=== PATIENT | female | born 2000 | race Hispanic/Latino ===

== ENCOUNTER 2022-05-31 07:47 | Day surgery (SDC) | payer BC ==
[2022-05-30 08:48] VITALS: BMI 34.3
[2022-05-31] MEDS ORDERED: Midazolam HCl 2 mg/2 ml Vial ONE (08:45)
[2022-05-31] MEDS ORDERED: Scopolamine 1.5 mg/72 hour Patch ONE (08:46)
[2022-05-31] MEDS ORDERED: Propofol 1,000 MG/100 ML VIAL IV ONE ×2 (09:04→09:39)
[2022-05-31 09:08] LABS: Hemoglobin 13.9 g/dL (12.0-16.0)
[2022-05-31] MEDS ORDERED: Ketamine 50 MG/ML (10ML VIAL) ONE (09:39)
[2022-05-31] MEDS ORDERED: fentaNYL PF 100 MCG/2 ML SYRINGE ONE (09:39)
[2022-05-31] MEDS ORDERED: PROPOFOL 200 MG/20 ML VIAL ONE (09:48)
[2022-05-31] MEDS ORDERED: Ondansetron PF 4 MG/2 ML Vial ONE (09:48)
[2022-05-31] MEDS ORDERED: Dexamethasone 20 MG/5 ML VIAL ONE (09:48)
[2022-05-31] MEDS ORDERED: Ferric Subsulfate (ASTRINGYN) 8 GM VIAL ONE (09:56)
[2022-05-31] MEDS ORDERED: Hydrocodone-Acetamin 15 ML UDCUP ONE ×2 (11:07)
[2022-05-31] MEDS ORDERED: Ondansetron ODT 4 MG TAB ONE (12:16)
== END 2022-05-31 13:29 | disposition home or self-care (01) ==
LOC: SDC 07:47
PROVIDERS: ATTEND Specialist
PROC: 0CTPXZZ Resection of Tonsils, External Approach (ICD-10-PCS; principal; 2022-05-31)
DX: J03.91 Acute recurrent tonsillitis, unspecified (principal); J35.01 Chronic tonsillitis; G47.33 Obstructive sleep apnea (adult) (pediatric); E66.9 Obesity, unspecified; Z68.34 Body mass index [BMI] 34.0-34.9, adult; Z79.899 Other long term (current) drug therapy
CPT/HCPCS: 85014; 85018; 88304; J1100; J2250; J2405; J2704; Q0162

== ENCOUNTER 2022-06-13 10:27 | Day surgery (SDC) | payer BC ==
[2022-06-13 11:20] LABS: #Basophils 0.1 thou/uL (0.0-0.2); #Eosinphils 0.4 thou/uL (0.0-0.7); #Lymphocytes 5.1 thou/uL (1.20-3.40); #Monocytes 0.9 thou/uL (0.11-0.59); #Neutrophils 8.3 thou/uL (1.40-6.50); %Basophils 0.8 % (0.0-1.0); %Eosinophils 2.8 % (0.0-10.0); %Lymphocytes 34.6 % (21.0-51.0); %Monocytes 5.7 % (0.0-10.0); Hemoglobin 15.6 g/dL (12.0-16.0); Mean Corpuscular HGB CONC 33.8 g/dL (32.0-36.0); Mean Corpuscular Hemoglobin 30.2 pg (27.0-31.0); Mean Corpuscular Volume 89.2 fl (78.0-98.0); Mean Platelet Volume 7.9 fL (7.4-10.4); Platelet Count 333 10x3/uL (130-400); RBC Distribution Width 12.1 % (11.5-14.5); Red Blood Cell (RBC) Count 5.15 mill/uL (4.20-5.40); White Blood Cell (WBC) Count 14.8 10x3/uL (4.8-10.8)
[2022-06-13 11:33] LABS: PTT 29.7 sec (22.9-36.1)
[2022-06-13 11:34] LABS: Prothrombin Time 14.1 sec (12.0-14.7)
[2022-06-13 11:36] LABS: BHCG - Serum Negative (NEGATIVE); Pregs Control Background? CLEAR/WHITE (CLR/WHITE); Pregs Control Bar Appear? YES (CONTROL BAR)
[2022-06-13] MEDS ORDERED: Ondansetron PF 4 MG/2 ML Vial ONE (11:44)
[2022-06-13] MEDS ORDERED: Succinylcholine Chloride 100 MG/5 ML SYRINGE FS ONE (11:44)
[2022-06-13] MEDS ORDERED: Dexamethasone 20 MG/5 ML VIAL ONE (11:44)
[2022-06-13] MEDS ORDERED: PROPOFOL 200 MG/20 ML VIAL ONE (11:44)
[2022-06-13] MEDS ORDERED: Lidocaine 1% PF 5 ML VIAL ONE (11:44)
[2022-06-13] MEDS ORDERED: fentaNYL PF 100 MCG/2 ML SYRINGE ONE (11:50)
[2022-06-13] MEDS ORDERED: Midazolam HCl 2 mg/2 ml Vial ONE (11:51)
[2022-06-13] MEDS ORDERED: Ferric Subsulfate (ASTRINGYN) 8 GM VIAL ONE (12:20)
[2022-06-13 12:30] LABS: ALT (SGPT) 23 U/L (8-55); AST (SGOT) 21 U/L (5-34); Albumin 3.9 g/dL (3.5-5.0); Alkaline Phosphatase 77 U/L (40-110); Anion Gap 15 mmol/L (10-20); BUN (Urea Nitrogen) 9 mg/dL (7.0-18.7); Bilirubin, Total 0.4 mg/dL (0.2-1.2); Calc. Creatinine Clearance 0 mL/min (70-130); Calcium 9.3 mg/dL (7.8-10.44); Carbon Dioxide 17 mmol/L (22-29); Chloride 107 mmol/L (98-107); Estimated GFR 127; Glucose 94 mg/dL (70-105); Potassium 4.4 mmol/L (3.5-5.1); Protein, Total 7.9 g/dL (6.0-8.3); Sodium 135 mmol/L (136-145)
[2022-06-13] MEDS ORDERED: Fentanyl 100 MCG/2 ML VIAL ONE (12:54)
[2022-06-13] MEDS ORDERED: Hydrocodone-Acetamin 15 ML UDCUP ONE (13:49)
== END 2022-06-13 14:22 | disposition home or self-care (01) ==
LOC: ERS 10:27 → SDC/OP 12:00
PROVIDERS: ATTEND Otolaryngology Plastic Surgery within the Head & Neck
PROC: 0W33XZZ Control Bleeding in Oral Cavity and Throat, External Approach (ICD-10-PCS; principal; 2022-06-13)
DX: J95.830 Postprocedural hemorrhage of a respiratory system organ or structure following a respiratory system procedure (principal)
CPT/HCPCS: 36415; 80053; 84703; 85025; 85610; 85730; 86850; 86900; 86901; 96360; J1100; J2250; J2405; J2704; J3010